=== PATIENT | male | born 1975 ===

== ENCOUNTER 2017-11-03 06:40 | Day surgery (SDC) | payer OTHER ==
[~2017-11-03] VITALS: Ht 170.2 cm; Wt 90.7 kg
[2017-11-03] VITALS (14 sets, daily range): BP systolic 108–127; BP diastolic 69–91
[~2017-11-03 06:40] MED LIST: NKM
[2017-11-03] MEDS ORDERED: celeBREX 200mg Cap **SURGERY PATIENTS ONLY ORAL ONE ×2 (06:45→07:49)
[2017-11-03] MEDS ORDERED: oxyCONTIN 20mg tab ORAL ONE (06:45)
[2017-11-03] MEDS ORDERED: ceFAZolin sod 1 GM in D5W 55 ML IVPB SCH (07:00)
[2017-11-03] MEDS ORDERED: Ropivacaine 5mg/ml Vial 30ml INJ ONE (07:37)
--- NOTE | 2017-11-03 08:21 | Pre-Procedure Note/Attestation ---
Pre-Procedure Note/Attestation Complete Prior to Procedure Planned Procedure: right Procedure Narrative: rt shoulder scope, sad, mini luly, rtc repair, subscap repair, biceps tenodesis, labral repair Indications for Procedure Pre-Operative Diagnosis: rt shoulder rtc tear Attestation I attest that I discussed the nature of the procedure; its benefits; risks and complications; and alternatives (and the risks and benefits of such alternatives ), prior to the procedure, with the patient (or the patient's legal pharmacy sales representative). I attest that, if there was a reasonable possibility of needing a blood transfusion, the patient (or the patient's legal pharmacy sales representative) was given the [place] [employer] standardized written summary, pursuant to the Orlin Avery Blood Safety Act ([place] Health and Safety Code # 1645, as amended). I attest that I re-evaluated the patient just prior to the surgery and that there has been no change in the patient's H&P, except as documented below: NONE HERNAN CARDENAS Nov 03, 2017 08:21
[2017-11-03] MEDS ORDERED: LR 1000ml 1,000 ML IVLG SCH (08:56)
--- NOTE | 2017-11-03 08:56 | Anethesia Preoperative Eval ---
Anesthesia Pre-op PMH/ROS General Date of Evaluation: Nov 03, 2017 Time of Evaluation: 08:20 Anesthesiologist: Anna ASA Score: ASA 2 Mallampati Score Class I : Soft palate, uvula, fauces, pillars visible Class II: Soft palate, uvula, fauces visible Class III: Soft palate, base of uvula visible Class IV: Only hard plate visible Mallampati Classification: Class II Surgeon: Torsten Diagnosis: R shoulder pain Surgical Procedure: R shoulder scope Anesthesia History: none Family History: no anesthesia problems Allergies: Coded Allergies: NAPROXEN (Verified Adverse Reaction, Severe, vomiting , 11/02/17) "vomiting blood" Medications: see eMAR Past Medical History Cardiovascular: Denies: HTN, CAD, [place], valve dz, arrhythmia, other Pulmonary: Denies: asthma, COPD, CYNTHIA, other Gastrointestinal/Genitourinary: Reports: GERD; Denies: CRI, ESRD, other Endocrine: Denies: DM, hypothyroidism, steroids, other HEENT: Denies: cataract (L), cataract (R), glaucoma, VENETIE (L), VENETIE (R), other Hematology/Immune: Denies: anemia, DVT, bleeding disorder, other Musculoskeletal/Integumentary: Denies: OA, RA, DJD, DDD, edema, other Other: other - ovberweight PMH Narrative: as above PSxH Narrative: knee scope x 2 Anesthesia Pre-op Phys. Exam Physician Exam Last Vital Signs Date Time Temp Pulse Resp B/P (MAP) Pulse Ox O2 Delivery O2 Flow Rate FiO2 11/03/17 07:15 97.0 63 20 108/79 99 Room Air 97.0 Constitutional: NAD Neurologic: CN 2-12 intact Cardiovascular: RRR, no M/R/G Respiratory: CTA Gastrointestinal: S/NT/ND Airway Exam Mallampati Score: Class II MO: full Neck: flexible ROM: full Teeth: intact Dentures: no upper, no lower Anesthesia Pre-op A/P Labs see chart Studies Pre-op Studies: EKG - NSR Risk Assessment & Plan Assessment: ASA 2 Plan: GA with ETT R brachial plexus block for postoperative pain control Status Change Before Surgery: No Pre-Antibiotics Drug: Ancef 2gr. Given Within 1 Hr of Incision: Yes Time Given: 09:12 EFE KURTZ M.D. Nov 03, 2017 08:56
[2017-11-03] MEDS ORDERED: Neostigmine 1mg/ml 10ml Inj ONE (09:00)
[2017-11-03] MEDS ORDERED: NS Irrig 4000ml IRRIG ONE ×2 (09:00→09:03)
[2017-11-03] MEDS ORDERED: Propofol 200mg/20ml IV ONE (09:00)
[2017-11-03] MEDS ORDERED: fentaNYL 100 mcg/2 mL IV ONE (09:00)
[2017-11-03] MEDS ORDERED: Meperidine 50mg/ml Inj(FOR RIGORS ONLY) IV PRN (09:00)
[2017-11-03] MEDS ORDERED: LR 1000ml ONE (09:00)
[2017-11-03] MEDS ORDERED: Midazolam 2mg/2ml Inj ONE (09:00)
[2017-11-03] MEDS ORDERED: Zemuron 50mg/5ml Inj IV ONE (09:00)
[2017-11-03] MEDS ORDERED: Glycopyrrolate 0.2mg/ml 1ml Vial ONE (09:00)
[2017-11-03] MEDS ORDERED: DiphenhydrAMINE 50mg/ml Inj IVP PRN (09:00)
[2017-11-03] MEDS ORDERED: Hydromorphone 0.5mg/0.5ml inj IVP PRN (09:00)
[2017-11-03] MEDS ORDERED: Succinylcholine 20mg/ml 10ml vial ONE (09:00)
[2017-11-03] MEDS ORDERED: Sterile Water Irrig 1000ml IRRIG ONE (09:00)
[2017-11-03] MEDS ORDERED: Bupivacaine 0.5% Inj 30 ml vial INJ ONE (09:11)
--- NOTE | 2017-11-03 11:35 | Brief Operative Note ---
Immediate Post Operative Note Operative Note Chief Complaint: rt shoulder pain Pre-op Diagnosis: rt shoulder rtc tear Procedure: rt shoulder scope, sad, mini luly, subscap repair Post-op Diagnosis: same as pre-op Findings: consistent w/pre-op dx studies Surgeon: md angelica Customer Service Manager: rupinder odell Anesthesiologist: md kinjal Anesthesia: general, regional Specimen: none Complications: none Condition: stable Fluids: ns Estimated Blood Loss: minimal Drains: none Implant(s) used?: Yes - biomet EUGENIA ODELL Nov 03, 2017 11:35
--- NOTE | 2017-11-03 13:42 | Immediate Post-Op Evaluation ---
Immediate Post-Op Evalulation Immediate Post-Op Evalulation Procedure: R shoulder arthroscopy subacromion decompression RC repair Date of Evaluation: Nov 03, 2017 Time of Evaluation: 11:48 IV Fluids: 1200 Blood Products: none Estimated Blood Loss: 100 Urinary Output: none Blood Pressure Systolic: 116 Blood Pressure Diastolic: 57 Pulse Rate: 86 Respiratory Rate: 22 O2 Sat by Pulse Oximetry: 99 Temperature (Fahrenheit): 98.1 Pain Score (1-10): 1 Nausea: No Vomiting: No Complications none Patient Status: reacts, patent, extubated, none Hydration Status: adequate EFE KURTZ M.D. Nov 03, 2017 13:42
--- NOTE | 2017-11-03 13:44 | 48 Hour Post Anesthesia Eval ---
Post Anesthesia Evaluation Procedure: R shoulder arthroscopy subacromion decompression RC repair Date of Evaluation: Nov 03, 2017 Time of Evaluation: 13:42 Blood Pressure Systolic: 124 0: 72 Pulse Rate: 82 Respiratory Rate: 20 Temperature (Fahrenheit): 97.6 O2 Sat by Pulse Oximetry: 98 Airway: patent Nausea: No Vomiting: No Pain Intensity: 2 Hydration Status: adequate Cardiopulmonary Status: stable Mental Status/LOC: patient returned to baseline Follow-up Care/Observations: n/a Post-Anesthesia Complications: none Follow-up care needed: ready to discharge EFE KURTZ M.D. Nov 03, 2017 13:44
[2017-11-03] MEDS ORDERED: Hydromorphone 0.5mg/0.5ml inj SUBQ PRN (14:15)
[2017-11-03] MEDS ORDERED: Norco 5mg/325mg tab ORAL PRN (16:01)
[2017-11-03] MEDS ORDERED: Tylenol #3 tab (300mg/30mg) ORAL PRN (16:01)
[2017-11-03] MEDS ORDERED: D5 1/2NS 1,000 ML IV SCH (16:01)
--- NOTE | 2017-11-03 16:45 | Operative Note - Dictated ---
DATE OF OPERATION: 11/03/2017 PREOPERATIVE DIAGNOSES: 1. Right shoulder labral tear. 2. Right shoulder subscap tear. 3. Possible biceps tear. 4. Right shoulder subacromial impingement. POSTOPERATIVE DIAGNOSES: 1. Right shoulder complete subscap tear. 2. No subluxation of biceps tendon and biceps tendon was intact. 3. No labral tearing. 4. Right shoulder significant impingement with bursitis. 5. Bone spur underneath the clavicle. PROCEDURE: 1. Right shoulder arthroscopy and extensive intra-articular shaving. 2. Right shoulder subscapularis repair using single Biomet 2.9 mm JuggerKnot anchor with mobilization of subscap. 3. Right shoulder subacromial bursoscopy, bursectomy, subacromial decompression. 4. Right shoulder mini-Karsten procedure (resection of inferior 30% of distal end of the clavicle for coplaning). SURGEON: Oleg Sarmiento M.D. SUPERVISOR SPECIAL SERVICES: Radha Bain PA-C. Laborer Prestressed Concrete was present during the actual operative portion of the case and was important and essential part of the operation. During the operation, the compounding assistant held and operated the arthroscopic camera for visualization, assisted by manipulating the arm to help with visualization, and helped with essential parts of the repair process as necessary such as operating surgical instruments under surgeon supervision, suture management, and wound closures. ANESTHESIOLOGIST: Dr. Castillo. ANESTHESIA: LMA anesthesia combined with interscalene block. ESTIMATED BLOOD LOSS: Less than 20 mL. COMPLICATIONS: None. SURGICAL INDICATION: The patient is a 42-year-old male who sustained the above injury to his shoulder. The patient was treated non-operative initially, but this did not alleviate the patients symptoms. Therefore, after discussing all non-surgical and surgical options, and discussing all foreseeable risk and benefits of surgery, the patient opted for surgical treatment as described above. PATIENT POSITIONING: The patient was brought to the operating room table and was placed on the operating room table. All pressure points were well padded. General anesthesia was induced and the patient was then placed in the lateral decubitus position. All pressure points were well padded again and an axillary roll was placed. The patient's shoulder was then prepped and draped in the usual sterile fashion. Time-out was performed and the appropriate preoperative antibiotic was given by the anesthesiologist. EXAMINATION OF SHOULDER UNDER ANESTHESIA: The shoulder was examined under anesthesia with all muscles well relaxed. The shoulder was forward flexed, abducted, and was placed through full range of external and internal rotation. The anterior, posterior, and inferior stability of the shoulder was checked. The exam revealed no evidence of adhesive capsulitis and no evidence of instability. PORTAL PLACEMENT: The posterior portal was established 2 cm inferior and 1 cm medial to the edge of the posterior acromion. A 1-cm skin incision was made using an #11 blade and using the blunt obturator, the cannula was gently placed through the capsule. The mid-glenoid portal was established just lateral to the coracoid process under direct visualization. Direction of the cannula was first established using a spinal needle, and subsequently, the cannula was placed through the capsule with a blunt obturator. The anterosuperior cannula was established under direct visualization of the anterolateral edge of the acromion and just anterior to the biceps tendon through the rotator interval. The direction of cannula was first established using a spinal needle, and subsequently, the cannula was placed through the capsule with a blunt obturator. DIAGNOSTIC ARTHROSCOPY: The biceps tendon was probed and pulled through the joint for visualization. It appeared normal. The biceps anchor was palpated with a probe and was visualized. It appeared well attached and there was no evidence of SLAP tear. The posterior labrum and axillary recess was visualized. This was normal and there was no evidence of loose cartilage or fragments in this area. The glenoid articular surface was visualized and it appeared normal. The articular surface of the rotator cuff was visualized and probed next. There was no evidence of articular-sided rotator cuff tear extending from the supraspinatus back to the posterior cuff. The humeral head articular surface was then visualized. There was no evidence of articular cartilage damage. Next the anterior labrum, middle glenohumeral ligament, subscapularis tendon, and the anteroinferior glenohumeral ligament were evaluated. The anterior labrum and inferior labrum as well as anteroinferior glenohumeral ligaments were intact, however, the subscapularis was torn and retracted back. At this point, the scope was moved to the mid-glenoid portal and the posterior structures including the posterior labrum, posterior capsule, and posterior cuff were visualized. These structures were completely normal. The subscapularis recess was devoid of any loose bodies and the anterior capsule was well attached to the humeral neck. The middle and anteroinferior glenohumeral ligament was visualized. These structures were completely normal. OPERATIVE DEBRIDEMENTS AND REPAIR: Care was given to all partial thickness tears and frayed structures in the shoulder joint. The frayed rotator cuff and labrum was debrided using a shaver initially through the anterior portal and subsequently through the posterior portal to complete the debridement. This allowed for smooth debridement of all affected structures and all loose fragments were removed. At this point, care was given to subscapularis tear. Using a grasper, the mobility of subscap was checked. The subscap was stiff and was not very mobile. At this point, the sequential release was performed from the anterosuperior glenohumeral ligament, the medial border of the subscap as well as the glenoid edge of the subscap to mobilize it. At this point, the subscap had better excursion. The footprint of the subscap was then debrided using a shaver and bur, and at this point, a 2.9-mm anchor was attached onto the humeral footprint of the subscap. At this point, using suture-passing technique, the subscapularis was then repaired back onto the footprint using 1 horizontal mattress suture and a simple suture. SMC knot followed by three half hitches were then used to tie the subscap back down. This provided good repair of the subscap, but again, subscap was stiff and there was some mild tension on the subscap, however, the repair appeared to be holding well. At this point, care was given to the subacromial space. DIAGNOSTIC BURSOSCOPY AND SUBACROMIAL DECOMPRESSION: The subacromial bursa was entered from the posterior portal. The anterior portal was established under the CA ligament using a switching stick. Subacromial arthroscopy was initiated. There was extensive bursitis and thickened and inflamed bursa tissue present. The CA ligament appeared to be scuffed and frayed. The shaver was placed through the anterior cannula and debridement of the hypertrophic bursa tissue was accomplished. Once visualization was adequate, a lateral portal was established using a blunt trochar in the mid portion of the acromion bone in the anterior-posterior direction and approximately 2 cm lateral to the lateral edge of the acromion. Using combination of shaver and electrocautery, the CA ligament was released from the undersurface of the acromion and a complete bursectomy was accomplished. At this point, a subacromial decompression was performed using a marquise initially taking off 5-8 mm of the anterolateral edge of the acromion from the lateral portal and viewing from the posterior portal. Then the lateral border of the undersurface of the acromion was decompressed to the same depth as the anterolateral edge. A posterior trough was then created in the acromion in line with the posterior edge of the clavicle. At this point, the scope was placed in the lateral portal and the subacromial decompression was performed from the posterior portal decompressing the undersurface of the acromion to depth of 5-8 mm. The decompression was performed anterior to the previously-marked trough all the way medially to the level of the AC joint. At all times, care was given not to take off too much bone in order to avoid risk of fracture of the acromion. An excellent subacromial decompression was performed in this fashion. At this point, the bursal side of the rotator cuff was examined. All the bursa over the rotator cuff was removed and the rotator cuff was examined with a probe. The arm was placed into external rotation, neutral, and then internal rotation and there was no evidence of tear of the rotator cuff. The scope was then placed in the posterior portal and the subacromial decompression was rechecked to assure there was no area of bone spur that would be still impinging onto the rotator cuff. EVALUATION OF DISTAL CLAVICLE AND DISTAL CLAVICLE RESECTION: Care was given to the distal end of the clavicle. Using electrocautery and rosy, the distal end of the bursa and soft tissue around the distal end of the clavicle was debrided and cleaned. Care was given not to inflict excessive trauma to the ligaments of the AC joint. The distal end of the clavicle appeared to have an inferior osteophyte extending down well bellow the level of the acromion at the level of the AC joint. This appeared to be impinging onto the supraspinatus muscle belly and the musculotendinous junction of the rotator cuff. A mini-Karsten procedure was performed by using a marquise to resect the inferior 30% of the distal end of the clavicle. This decompression allowed space for the inferior structures to slide without impingement. This co-plained the inferior edge of the distal clavicle with the inferior edge of the acromion. CONDITION AT DISCHARGE FROM OPERATING ROOM: The skin was re-approximated and sterile dressing and sling were applied. All lap counts and instrument counts were correct. The patient tolerated the procedure well without complications and was taken to the recovery room in stable conditions. Oleg Adrianna Sarmiento DR: Chris JOB#: [id number] CC:
== END 2017-11-03 15:45 | disposition home or self-care (01) ==
LOC: SUR 06:40
DX: M75.41 Impingement syndrome of right shoulder (principal); M75.121 Complete rotator cuff tear or rupture of right shoulder, not specified as traumatic; K21.9 Gastro-esophageal reflux disease without esophagitis; Z88.8 Allergy status to other drugs, medicaments and biological substances
CPT/HCPCS: 29824; 29826; 29827; J0330; J0690; J2175; J2250; J2704; J2710; J2795; J3010; J7120; 94003; 94150; C1713